=== PATIENT | male | born 1985 | race Two or more races ===

== ENCOUNTER 2017-08-29 02:03 | Emergency (ER) | payer OTHER ==
[~2017-08-29] VITALS: Ht 175.3 cm; Wt 77.1 kg
[2017-08-29] MEDS ORDERED: KETO10TA2 PO ×2 (04:40)
[2017-08-29] MEDS ORDERED: CEFUROXIME500 MG PO ×2 (04:40)
== END 2017-08-29 04:59 | disposition home or self-care (01) ==
LOC: ER 02:03
DX: T15.12XA Foreign body in conjunctival sac, left eye, initial encounter (principal); W26.8XXA Contact with other sharp object(s), not elsewhere classified, initial encounter; Y93.89 Activity, other specified; Y92.69 Other specified industrial and construction area as the place of occurrence of the external cause; Y99.8 Other external cause status